=== PATIENT | male | born 1965 | race Caucasian/White ===

== ENCOUNTER 2018-03-04 15:41 | Emergency (ER) | payer SELFPAY ==
[~2018-03-04] VITALS: Ht 180.3 cm; Wt 95.9 kg
[2018-03-04] MEDS ORDERED: ASPIR LOW81 MG PO (15:54)
[2018-03-04] MEDS ORDERED: CEFDINIR300 MG PO (16:36)
[2018-03-04 16:47] VITALS: BP 139/89
== END 2018-03-04 16:48 | disposition home or self-care (01) ==
LOC: ED 15:41
DX: H66.92 Otitis media, unspecified, left ear (principal); Z87.891 Personal history of nicotine dependence

== ENCOUNTER 2018-03-07 13:51 | Emergency (ER) | payer SELFPAY ==
[~2018-03-07] VITALS: Ht 180.3 cm; Wt 98.6 kg
[~2018-03-07 13:51] MED LIST: ASPIR LOW81 MG PO; CEFDINIR300 MG PO
[2018-03-07] MEDS ORDERED: TYLENOL EXTRA500 M2 PO (14:02)
[2018-03-07 14:31] LABS: HEMATOCRIT 46.1 % (42.0-52.0); HEMOGLOBIN 15.9 g/dL (13.5-18.0); MEAN CELL VOLUME 84 fl (78-100); MEAN CORPUSCULAR HEMOGLOBIN 29 pg (27-31); MEAN CORPUSCULAR HGB CONC 35 g/dL (33-37); MEAN PLATELET VOLUME 10.9 fl (7.4-10.4); PLATELET COUNT 269 K/mm3 (130-400); RED BLOOD COUNT 5.49 M/mm3 (4.20-5.60); RED CELL DISTRIBUTION WIDTH 12.9 % (11.5-14.5); WHITE BLOOD COUNT 7.2 K/mm3 (4.8-10.8)
[2018-03-07 14:37] LABS: BAND 2 % (0-10); LYMPHOCYTE 32 % (20-51); MONOCYTE 10 % (3-10); NEUTROPHILS 47 % (42-75)
[2018-03-07 14:46] LABS: CALCIUM 9.3 mg/dL (8.4-10.2); TOTAL BILIRUBIN 1.1 mg/dL (0.2-1.3); TOTAL PROTEIN 8.8 g/dL (6.3-8.2)
[2018-03-07] MEDS ORDERED: VALIUM 2MG T2 MG/TAB PO (17:03)
[2018-03-07 17:16] VITALS: BP 133/89
== END 2018-03-07 17:17 | disposition home or self-care (01) ==
LOC: ED 13:51
PROVIDERS: Nurse Practitioner Primary Care
DX: R42 Dizziness and giddiness (principal); B34.9 Viral infection, unspecified; H90.12 Conductive hearing loss, unilateral, left ear, with unrestricted hearing on the contralateral side; Z86.69 Personal history of other diseases of the nervous system and sense organs; I25.10 Atherosclerotic heart disease of native coronary artery without angina pectoris; I10 Essential (primary) hypertension; Z95.5 Presence of coronary angioplasty implant and graft; Z87.891 Personal history of nicotine dependence; Z79.82 Long term (current) use of aspirin
CPT/HCPCS: J1885; J7030

== ENCOUNTER → 2023-09-03 | Outpatient (CLI) | payer BC ==
[~2023-09-03] MED LIST changes: +TYLENOL EXTRA500 M2 PO; +VALIUM 2MG T2 MG/TAB PO
[2023-09-03 09:33] LABS: BASO # 0.02 K/mm3 (0.02-0.10); EOS # 0.06 K/mm3 (0.04-0.40); EOS % 0.8 % (0.0-4.0); HEMATOCRIT 49.7 % (42.0-52.0); HEMOGLOBIN 16.6 g/dL (13.5-18.0); LYMPH# 1.75 K/mm3 (1.50-4.00); MEAN CELL VOLUME 88 fl (78-100); MEAN CORPUSCULAR HEMOGLOBIN 29 pg (27-31); MEAN CORPUSCULAR HGB CONC 33 g/dL (33-37); MEAN PLATELET VOLUME 10.5 fl (7.4-10.4); MONO # 0.87 K/mm3 (0.20-0.80); NEU # 5.26 K/mm3 (1.40-6.50); PLATELET COUNT 226 K/mm3 (130-400); RED BLOOD COUNT 5.66 M/mm3 (4.20-5.60); RED CELL DISTRIBUTION WIDTH 13.7 % (11.5-14.5)
[2023-09-03 09:39] LABS: ALBUMIN 4.3 g/dL (3.5-5.0)
[2023-09-03 09:41] LABS: CALCIUM 9.5 mg/dL (8.3-10.5)
[2023-09-03 09:42] LABS: TOTAL PROTEIN 7.4 g/dL (6.4-8.3)
[2023-09-03 09:44] LABS: TOTAL BILIRUBIN 1.4 mg/dL (0.2-1.2)
== END ==
LOC: LAB 08:56
PROVIDERS: Family Medicine
DX: Z12.5 Encounter for screening for malignant neoplasm of prostate (principal); I10 Essential (primary) hypertension; E78.5 Hyperlipidemia, unspecified